=== PATIENT | male | born 1945 | race Caucasian/White ===

== ENCOUNTER 2017-02-28 14:56 | Emergency (ER) | payer MEDICARE, MEDICAID ==
[2017-02-28 15:49] LABS: URINE APPEARANCE CLEAR; URINE BILIRUBIN NEGATIVE (NEGATIVE); URINE BLOOD SMALL (NEGATIVE); URINE COLOR YELLOW; URINE GLUCOSE (UA) NEGATIVE (NEGATIVE); URINE KETONE 40 mg/dL (NEGATIVE); URINE LEUKOCYTE ESTERASE TRACE (NEGATIVE); URINE NITRITE POSITIVE (NEGATIVE); URINE PROTEIN NEGATIVE (NEGATIVE)
[2017-02-28] MEDS ORDERED: PROMETHAZINE HCL 25 MG TABLET PO ONE (15:50)
[2017-02-28 15:59] LABS: URINE RBC 21 - 35 (NONE SEEN)
[2017-02-28 16:00] LABS: URINE BACTERIA 2+
--- NOTE | 2017-02-28 16:10 | Emergency Department Record ---
History of Present Illness - General Chief complaint: Male Urogenital Problem Stated complaint: "I think I have a bladder infection" Time Seen by Provider: 02/28/17 15:39 Source: Patient Mode of Arrival: Ambulatory Limitations: No limitations - History of Present Illness Initial comments: pt thinks he has a uti. he feels the same way. he has self cathed for 5 yrs since a surgery. he periodically gets infections. he has had bouts of nausea and vomiting Onset/Timin -: Days(s) Other Reports: Nausea/vomiting, Other - Related Data Home Medications Medication Instructions Recorded Confirmed Last Taken Aspirin 81 mg PO QHS tab.chew 09/04/16 02/28/17 02/28/17 Metformin HCl [Metformin HCl ER] 1,000 mg PO DAILY tab 09/04/16 02/28/17 Prazosin HCl 1 mg PO BID cap 09/04/16 02/28/17 02/28/17 Sennosides [Senna] 2 tab PO DAILY tab 09/04/16 02/28/17 02/28/17 Simvastatin 10 mg PO QHS tab 09/04/16 02/28/17 02/28/17 Tramadol HCl 100 mg PO BID tab 09/04/16 02/28/17 02/28/17 Trazodone HCl 75 mg PO QHS tab 09/04/16 02/28/17 02/28/17 Previous Rx's Medication Instructions Recorded Sulfamethoxazole/Trimethoprim 1 each PO BID #14 tablet 02/28/17 [Bactrim Ds Tablet] Allergies Allergy/AdvReac Type Severity Reaction Status Date / Time No Known Allergies Allergy none Verified 02/28/17 15:20 Travel Screening - Travel/Exposure Within Last 30 Days Have you traveled within the last 30 days?: No - Travel/Exposure Within Last Year Have you traveled outside the [place] in the last year?: No - Additonal Travel Details Have you been exposed to anyone with a communicable illness?: No - Travel Symptoms Symptom Screening: None Review of Systems Reviewed: No additional complaints except as noted below Constitutional: Reports: As per HPI. Denies: Chills, Fever, Malaise, Night sweats, Weakness, Weight change Eyes: Reports: As per HPI. Denies: Eye discharge, Eye pain, Photophobia, Vision change ENT: Reports: As per HPI. Denies: Congestion, Dental pain, Ear pain, Epistaxis , Hearing loss, Throat pain Respiratory: Reports: As per HPI. Denies: Cough, Dyspnea, Hemoptysis, Stridor, Wheezes Cardiovascular: Reports: As per HPI. Denies: Arrhythmia, Chest pain, Dyspnea on exertion, Edema, Murmurs, Orthopnea, Palpitations, Paroxysmal nocturnal dyspnea, Rheumatic Fever, Syncope Endocrine: Reports: As per HPI. Denies: Fatigue, Heat or cold intolerance, Polydipsia, Polyuria Gastrointestinal: Reports: As per HPI. Denies: Abdominal pain, Constipation, Diarrhea, Hematemesis, Hematochezia, Melena, Nausea, Vomiting Genitourinary: Reports: As per HPI. Denies: Dysuria, Frequency, Hematuria, Incontinence, Retention, Testicular pain, Testicular mass, Urgency Musculoskeletal: Reports: As per HPI. Denies: Arthralgia, Back pain, Gout, Joint swelling, Myalgia, Neck pain Skin: Reports: As per HPI. Denies: Bruising, Change in color, Change in hair/ nails, Lesions, Pruritus, Rash Neurological: Reports: As per HPI. Denies: Abnormal gait, Confusion, Headache, Numbness, Paresthesias, Seizure, Tingling, Tremors, Vertigo, Weakness Psychiatric: Reports: As per HPI. Denies: Anxiety, Auditory hallucinations, Depression, Homicidal thoughts, Suicidal thoughts, Visual hallucinations Hematological/Lymphatic: Reports: As per HPI. Denies: Anemia, Blood Clots, Easy bleeding, Easy bruising, Swollen glands Past Medical History - SOCIAL HISTORY Smoking Status: Never smoker Alcohol Use: None Drug Use Detail:: Methamphetamine - RESPIRATORY Hx Respiratory Disorders: No - CARDIOVASCULAR Hx Cardio Disorders: Yes Comment:: "trouble with heart" in the past - NEURO Hx Neuro Disorders: Yes Hx Dizziness: Yes - GI Hx GI Disorders: No - Hx Genitourinary Disorders: Yes Hx Bladder Problem: Yes Comment:: Pt self catheterizes for each void - ENDOCRINE Hx Endocrine Disorders: Yes Hx Diabetes: Yes Hx Thyroid Disease: No - MUSCULOSKELETAL Hx Musculoskeletal Disorders: No - PSYCH Hx Psych Problems: Yes Comment:: Pt states drug abuse began in [place] 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 negative: External canal tenderness Nasal Exam: Normal inspection. negative: Discharge, Sinus tenderness Mouth exam: Normal external inspection, Tongue normal Teeth exam: Normal inspection. negative: Dental caries Throat exam: Normal inspection. negative: Tonsillar erythema, Tonsillar exudate - Neck Neck exam: Normal inspection, Full ROM. negative: Tenderness - Respiratory Respiratory exam: Normal lung sounds bilaterally. negative: Respiratory distress - Cardiovascular Cardiovascular Exam: Regular rate, Normal rhythm, Normal heart sounds - GI/Abdominal GI/Abdominal exam: Soft, Normal bowel sounds. negative: Tenderness - Rectal Rectal exam: Deferred - exam: Deferred - Extremities Extremities exam: Normal inspection, Full ROM, Normal capillary refill. negative: Tenderness - Back Back exam: Reports: Normal inspection, Full ROM. Denies: Muscle spasm, Rash noted, Tenderness - Neurological Neurological exam: Alert, CN II-XII intact, Normal gait, Oriented X3 - Psychiatric Psychiatric exam: Normal affect, Normal mood - Skin Skin exam: Dry, Intact, Normal color, Warm Course Vital Signs 02/28/17 02/28/17 15:07 15:22 Temperature 97.5 F L 97.5 F L Pulse Rate [ 76 Pulse Ox Probe] Respiratory 14 14 Rate Blood Pressure 109/64 [Left Arm] Pulse Ox 98 98 Medical Decision Making - Lab Data Lab Results 02/28/17 Range/Units 15:23 Urine Color Yellow Urine Appearance Clear Urine pH 6.5 (5.0-8.0) Ur Specific [place] 1.020 (1.002-1.030) Urine Protein Negative (NEGATIVE) Urine Glucose (UA) Negative (NEGATIVE) Urine Ketones 40 mg/dl H (NEGATIVE) Urine Blood Small H (NEGATIVE) Urine Nitrite Positive H (NEGATIVE) Urine Bilirubin Negative (NEGATIVE) Urine Urobilinogen 1.0 (0.20 - 1.00) E.U./dL Ur Leukocyte Esterase Trace H (NEGATIVE) Urine RBC 21 - 35 (NONE SEEN) Urine WBC 6 - 10 (0-2/hpf) Ur Epithelial Cells 3 - 6 (FEW) Urine Bacteria 2+ Disposition Disposition: Discharge Clinical Impression: UTI (urinary tract infection) Qualifiers: Urinary tract infection type: acute cystitis Hematuria presence: without hematuria Qualified Code(s): N30.00 - Acute cystitis without hematuria Disposition: Home, Self-Care Condition: (1) Good Instructions: Urinary Tract Infection in Men (ED) Additional Instructions: follow up with family doctor. return sooner if worse. Prescriptions: Sulfamethoxazole/Trimethoprim [Bactrim Ds Tablet] 1 each PO BID #14 tablet Forms: Patient Portal Access
== END 2017-02-28 16:30 | disposition home or self-care (01) ==
LOC: ER 14:56
DX: N30.00 Acute cystitis without hematuria (principal); R11.2 Nausea with vomiting, unspecified
CPT/HCPCS: 81001; 99283; Q0170

== ENCOUNTER 2018-11-01 11:26 | Observation (INO) | payer MEDICARE ==
[2018-11-01] MEDS ORDERED: 0.9 % SODIUM CHLORIDE 1,000 ML BAG IV ONE ×2 (11:47→13:18)
[2018-11-01 11:53] LABS: BASO % 0.4 % (0-6); EOS % 2.2 % (0-6); HEMATOCRIT 47.6 % (42.0-52.0); HEMOGLOBIN 16.4 gm/dl (14.0-18.0); LYMPH % 47.5 % (16-45); MEAN CELL VOLUME 82.2 fl (81-97); MEAN CORPUSCULAR HEMOGLOBIN 28.3 pg (27-33); MEAN CORPUSCULAR HGB CONC 34.5 g/dl (32-36); MEAN PLATELET VOLUME 11.4 fl (7.4-10.4); MONO % 14.9 % (0-9); PLATELET COUNT 172 K/uL (130-400); RED BLOOD COUNT 5.79 M/uL (4.40-5.70); RED CELL DISTRIBUTION WIDTH 15.2 % (11.5-14.5); WHITE BLOOD COUNT W/O DIFF 5.5 K/uL (4.2-12.2)
[2018-11-01 11:58] LABS: BLOOD UREA NITROGEN 24 mg/dL (8-23); CREATININE 1.1 mg/dL (0.7-1.2); EST GLOMERULAR FILTRATION RATE > 60 mL/min
[2018-11-01 11:59] LABS: TOTAL PROTEIN 7.5 g/dL (6.6-8.7)
[2018-11-01 12:01] LABS: GLUCOSE,RANDOM 174 mg/dL (74-109)
[2018-11-01 12:03] LABS: ALT/SGPT 20 U/L (<41)
[2018-11-01 12:04] LABS: ALKALINE PHOSPHATASE 106 U/L (40-129); AST/SGOT 19 U/L (10.0-50.0); BILIRUBIN,DIRECT < 0.2 mg/dL (0-0.3)
[2018-11-01 13:15] LABS: URINE APPEARANCE SL CLOUDY; URINE BILIRUBIN NEGATIVE (NEGATIVE); URINE BLOOD TRACE-I (NEGATIVE); URINE COLOR YELLOW; URINE GLUCOSE (UA) NEGATIVE (NEGATIVE); URINE KETONE NEGATIVE (NEGATIVE); URINE LEUKOCYTE ESTERASE SMALL (NEGATIVE); URINE NITRITE NEGATIVE (NEGATIVE); URINE PROTEIN NEGATIVE (NEGATIVE); URINE UROBILINOGEN 0.2 E.U./dL (0.20 - 1.00)
[2018-11-01 13:23] LABS: AMPHETAMINE SCREEN URINE NOT DETECTED; BARBITURATE SCREEN URINE NOT DETECTED; BENZODIAZEPINE SCREEN URINE NOT DETECTED; COCAINE SCREEN URINE NOT DETECTED; METHADONE SCREEN URINE NOT DETECTED; METHAMPHETAMINE SCREEN NOT DETECTED; OPIATE SCREEN URINE NOT DETECTED; OXYCODONE SCREEN URINE NOT DETECTED; PHENCYCLIDINE SCREEN URINE NOT DETECTED; PROPOXYPHENE SCREEN URINE NOT DETECTED; THC SCREEN URINE NOT DETECTED; TRICYCLIC ANTIDEPRESSANT SCRN DETECTED; URINE BACTERIA 4+; URINE EPITHELIAL CELLS NONE SEEN (FEW)
--- NOTE | 2018-11-01 15:08 | CT SCAN REPORT ---
DATE: 11/01/2018. EXAM: CT OF THE BRAIN WITHOUT CONTRAST. HISTORY: SYNCOPE. TECHNIQUE: Sequential axial images were obtained from the foramen magnum to the vertex without contrast administration. FINDINGS: The brain volume is normal. No large territorial infarct, hemorrhage , mass effect, or midline shift. No extra-axial fluid collection. The orbits, paranasal sinuses, and mastoid air cells are normal. IMPRESSION: NO ACUTE INTRACRANIAL ABNORMALITIES ARE APPRECIATED. JOB NUMBER: [id number] MTDD
--- NOTE | 2018-11-01 18:28 | Emergency Department Record ---
History of Present Illness - General Chief Complaint: Syncope Stated Complaint: SYNCOPE Time Seen by Provider: 11/01/18 11:33 Source: Patient, Family Mode of Arrival: Wheelchair Limitations: No limitations - History of Present Illness Initial Comments: pt stated that he almost passed out and slipped to the floor. he said he was lightheaded and dizzy and the room was spinning. Onset/Timin -: Minutes(s) Prodromal Symptoms: Lightheaded Current Symptoms: Lightheaded Context: During exertion Treatments Prior to Arrival: None - [place] Coma Scale Eye Response: (4) Open spontaneously Motor Response: (6) Obeys commands Verbal Response: (5) Oriented [place] Total: 15 - Related Data Home Medications Medication Instructions Recorded Confirmed Last Taken Diltiazem HCl [Diltiazem 12Hr ER] 360 mg PO DAILY 11/01/18 11/01/18 Unknown Gabapentin [Neurontin] 300 mg PO TID 11/01/18 11/01/18 Unknown Rivaroxaban [Xarelto] 20 mg PO DAILY 11/01/18 11/01/18 Unknown Allergies Allergy/AdvReac Type Severity Reaction Status Date / Time No Known Allergies Allergy none Unverified 10/19/18 11:14 Travel Screening - Travel/Exposure Within Last 30 Days Have you traveled within the last 30 days?: No Review of Systems Reviewed: No additional complaints except as noted below Constitutional: Reports: As per HPI. Denies: Chills, Fever, Malaise, Night sweats, Weakness, Weight change Eyes: Reports: As per HPI. Denies: Eye discharge, Eye pain, Photophobia, Vision change ENT: Reports: As per HPI. Denies: Congestion, Dental pain, Ear pain, Epistaxis , Hearing loss, Throat pain Respiratory: Reports: As per HPI. Denies: Cough, Dyspnea, Hemoptysis, Stridor, Wheezes Cardiovascular: Reports: As per HPI. Denies: Arrhythmia, Chest pain, Dyspnea on exertion, Edema, Murmurs, Orthopnea, Palpitations, Paroxysmal nocturnal dyspnea, Rheumatic Fever, Syncope Endocrine: Reports: As per HPI. Denies: Fatigue, Heat or cold intolerance, Polydipsia, Polyuria Gastrointestinal: Reports: As per HPI. Denies: Abdominal pain, Constipation, Diarrhea, Hematemesis, Hematochezia, Melena, Nausea, Vomiting Genitourinary: Reports: As per HPI. Denies: Dysuria, Frequency, Hematuria, Incontinence, Retention, Testicular pain, Testicular mass, Urgency Musculoskeletal: Reports: As per HPI. Denies: Arthralgia, Back pain, Gout, Joint swelling, Myalgia, Neck pain Skin: Reports: As per HPI. Denies: Bruising, Change in color, Change in hair/ nails, Lesions, Pruritus, Rash Neurological: Reports: As per HPI. Denies: Abnormal gait, Confusion, Headache, Numbness, Paresthesias, Seizure, Tingling, Tremors, Vertigo, Weakness Psychiatric: Reports: As per HPI. Denies: Anxiety, Auditory hallucinations, Depression, Homicidal thoughts, Suicidal thoughts, Visual hallucinations Hematological/Lymphatic: Reports: As per HPI. Denies: Anemia, Blood Clots, Easy bleeding, Easy bruising, Swollen glands Past Medical History - SOCIAL HISTORY Smoking Status: Never smoker - RESPIRATORY Hx Respiratory Disorders: No - CARDIOVASCULAR Hx Cardio Disorders: Yes Comment:: "trouble with heart" in the past - NEURO Hx Neuro Disorders: Yes Hx Dizziness: Yes - GI Hx GI Disorders: No - Hx Genitourinary Disorders: Yes Hx Bladder Problem: Yes Comment:: Pt self catheterizes for each void - ENDOCRINE Hx Endocrine Disorders: Yes Hx Diabetes: Yes Hx Thyroid Disease: No - MUSCULOSKELETAL Hx Musculoskeletal Disorders: No - PSYCH Hx Psych Problems: Yes Comment:: Pt states drug abuse began in [place] 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 negative: External canal tenderness Nasal Exam: Normal inspection. negative: Discharge, Sinus tenderness Mouth exam: Normal external inspection, Tongue normal Teeth exam: Normal inspection. negative: Dental caries Throat exam: Normal inspection. negative: Tonsillar erythema, Tonsillar exudate - Neck Neck exam: Normal inspection, Full ROM. negative: Tenderness - Respiratory Respiratory exam: Normal lung sounds bilaterally. negative: Respiratory distress - Cardiovascular Cardiovascular Exam: Regular rate, Normal rhythm, Normal heart sounds - GI/Abdominal GI/Abdominal exam: Soft, Normal bowel sounds. negative: Tenderness - Rectal Rectal exam: Deferred - exam: Deferred - Extremities Extremities exam: Normal inspection, Full ROM, Normal capillary refill. negative: Tenderness - Back Back exam: Reports: Normal inspection, Full ROM. Denies: Muscle spasm, Rash noted, Tenderness - Neurological Neurological exam: Alert, CN II-XII intact, Normal gait, Oriented X3 - Psychiatric Psychiatric exam: Normal affect, Normal mood - Skin Skin exam: Dry, Intact, Normal color, Warm Course Vital Signs 11/01/18 11:29 Pulse Rate 61 Respiratory 18 Rate Blood Pressure 130/108 - Reevaluation(s) Reevaluation #1: 11/01/18 18:30 pt felt better after 1500cc of fluid. he was initially orthostatic. he eventually told me he accidentally took an extra cardizem Medical Decision Making - Lab Data Result diagrams: 11/01/18 11:40 11/01/18 11:40 Lab Results 11/01/18 11/01/18 11/01/18 Range/Units 11:40 11:40 11:40 WBC 5.5 (4.2-12.2) K/uL RBC 5.79 H (4.40-5.70) M/uL Hgb 16.4 (14.0-18.0) gm/dl Hct 47.6 (42.0-52.0) % MCV 82.2 (81-97) fl MCH 28.3 (27-33) pg MCHC 34.5 (32-36) g/dl RDW 15.2 H (11.5-14.5) % Plt Count 172 (130-400) K/uL MPV 11.4 H (7.4-10.4) fl Gran % 35.0 L (47-80) % Lymphocytes % 47.5 H (16-45) % Monocytes % 14.9 H (0-9) % Eosinophils % 2.2 (0-6) % Basophils % 0.4 (0-6) % D-Dimer 0.36 (0-0.59) mg/L FEU Sodium 136 (136-145) mmol/L Potassium 3.9 (3.4-4.5) mmol/L Chloride 98 (98-107) mmol/L Carbon Dioxide 22.0 (22-29) mmol/L Anion Gap 16.0 (7-16) BUN 24 H (8-23) mg/dL Creatinine 1.1 (0.7-1.2) mg/dL Estimated GFR > 60 mL/min Random Glucose 174 H (74-109) mg/dL Calcium 8.9 (8.8-10.2) mg/dL Total Bilirubin 0.90 (0.2-1.0) mg/dL Direct Bilirubin < 0.2 (0-0.3) mg/dL AST 19 (10.0-50.0) U/L ALT 20 (<41) U/L Alkaline Phosphatase 106 (40-129) U/L CK-MB (CK-2) 3.0 (<6.73) ng/mL Troponin T (0-0.010) ng/mL NT-Pro-B Natriuret Pep (<125) pg/mL Total Protein 7.5 (6.6-8.7) g/dL Albumin 4.0 (4.0-5.0) g/dL Urine Color Urine Appearance Urine pH (5.0-8.0) Ur Specific [place] (1.002-1.030) Urine Protein (NEGATIVE) Urine Glucose (UA) (NEGATIVE) Urine Ketones (NEGATIVE) Urine Blood (NEGATIVE) Urine Nitrite (NEGATIVE) Urine Bilirubin (NEGATIVE) Urine Urobilinogen (0.20 - 1.00) E.U./dL Ur Leukocyte Esterase (NEGATIVE) Urine RBC (NONE SEEN) Urine WBC (0-2/hpf) Ur Epithelial Cells (FEW) Urine Bacteria Urine Opiates Screen Ur Oxycodone Screen Urine Methadone Screen Ur Propoxyphene Screen Ur Barbituates Screen Ur Tricyclics Screen Ur Phencyclidine Scrn Ur Amphetamine Screen U Methamphetamines Scrn U Benzodiazepines Scrn Urine Cocaine Screen Urine Cannabis Screen 11/01/18 11/01/18 11/01/18 Range/Units 11:40 13:10 13:10 WBC (4.2-12.2) K/uL RBC (4.40-5.70) M/uL Hgb (14.0-18.0) gm/dl Hct (42.0-52.0) % MCV (81-97) fl MCH (27-33) pg MCHC (32-36) g/dl RDW (11.5-14.5) % Plt Count (130-400) K/uL MPV (7.4-10.4) fl Gran % (47-80) % Lymphocytes % (16-45) % Monocytes % (0-9) % Eosinophils % (0-6) % Basophils % (0-6) % D-Dimer (0-0.59) mg/L FEU Sodium (136-145) mmol/L Potassium (3.4-4.5) mmol/L Chloride (98-107) mmol/L Carbon Dioxide (22-29) mmol/L Anion Gap (7-16) BUN (8-23) mg/dL Creatinine (0.7-1.2) mg/dL Estimated GFR mL/min Random Glucose (74-109) mg/dL Calcium (8.8-10.2) mg/dL Total Bilirubin (0.2-1.0) mg/dL Direct Bilirubin (0-0.3) mg/dL AST (10.0-50.0) U/L ALT (<41) U/L Alkaline Phosphatase (40-129) U/L CK-MB (CK-2) (<6.73) ng/mL Troponin T < 0.010 (0-0.010) ng/mL NT-Pro-B Natriuret Pep 167.40 H (<125) pg/mL Total Protein (6.6-8.7) g/dL Albumin (4.0-5.0) g/dL Urine Color Yellow Urine Appearance Sl cloudy Urine pH 6.0 (5.0-8.0) Ur Specific [place] 1.025 (1.002-1.030) Urine Protein Negative (NEGATIVE) Urine Glucose (UA) Negative (NEGATIVE) Urine Ketones Negative (NEGATIVE) Urine Blood Trace-i (NEGATIVE) Urine Nitrite Negative (NEGATIVE) Urine Bilirubin Negative (NEGATIVE) Urine Urobilinogen 0.2 (0.20 - 1.00) E.U./dL Ur Leukocyte Esterase Small H (NEGATIVE) Urine RBC 3 - 6 (NONE SEEN) Urine WBC 10 - 15 (0-2/hpf) Ur Epithelial Cells None seen (FEW) Urine Bacteria 4+ Urine Opiates Screen Not detected Ur Oxycodone Screen Not detected Urine Methadone Screen Not detected Ur Propoxyphene Screen Not detected Ur Barbituates Screen Not detected Ur Tricyclics Screen Detected Ur Phencyclidine Scrn Not detected Ur Amphetamine Screen Not detected U Methamphetamines Scrn Not detected U Benzodiazepines Scrn Not detected Urine Cocaine Screen Not detected Urine Cannabis Screen Not detected Disposition Disposition: Admit Clinical Impression: Syncope Qualifiers: Syncope type: unspecified Qualified Code(s): R55 - Syncope and collapse Disposition: Still a Patient at [facility] Decision to Admit: Admit from ER Decision to Admit Date: 11/01/18 Decision to Admit Time: 18:37 Quality - Quality Measures Quality Measures: N/A - Blood Pressure Screening Does Patient Have Any of the Following: Active Dx of HTN Blood Pressure Classification: Hypertensive Reading Systolic Measurement: 130 Diastolic Measurement: 108 Screening for High Blood Pressure: Patient Exclusion, Hx of HTN [[id number]]
[2018-11-01] MEDS ORDERED: ACETAMINOPHEN 500 MG TABLET PO PRN (19:14)
[2018-11-01] MEDS: 0.9 % SODIUM CHLORIDE 1000ML 1,000 ML IV PRN (19:42)
[2018-11-01] MEDS: TRAMADOL HCL 50 MG TABLET PO SCH (21:35)
[2018-11-01] MEDS: GABAPENTIN 300 MG CAPSULE PO SCH (21:36)
[2018-11-01] MEDS: CIPROFLOXACIN HCL 500 MG TABLET PO SCH (21:38)
[2018-11-01] MEDS ORDERED: SIMVASTATIN 10MG TABLET PO SCH (22:00)
[2018-11-01] MEDS ORDERED: Non-Formulary MISC (Prazosin Hcl [Prazosin Hcl] 1 MG) PO SCH (22:00)
[2018-11-01] MEDS ORDERED: ASPIRIN 81 MG CHEWABLE TABLET PO SCH (22:00)
[2018-11-02] MEDS: 0.9 % SODIUM CHLORIDE 1000ML 1,000 ML IV PRN (05:14)
[2018-11-02] MEDS ORDERED: METFORMIN ER HCL 500 MG TAB.ER.24H PO SCH (10:00)
[2018-11-02] MEDS ORDERED: RIVAROXABAN 20 MG TABLET PO SCH (10:00)
[2018-11-02] MEDS: TRAMADOL HCL 50 MG TABLET PO SCH (10:19)
[2018-11-02] MEDS: GABAPENTIN 300 MG CAPSULE PO SCH (10:21)
[2018-11-02] MEDS: CIPROFLOXACIN HCL 500 MG TABLET PO SCH (10:21)
--- NOTE | 2018-11-02 12:14 | History & Physical ---
History of Present Illness - Date of Service Date of Service for History & Physical: 11/02/18 - History of Present Illness Admitting Diagnosis: syncope, orthostatic hypotension, od of cardizem History of Present Illness: 73 year old male patient presents to the ED for evaluation of dizziness. Patient states he climbed a flight of stairs and when he got to the top had severe dizziness. States he felt light-headed and dizzy with the room spinning. Patient states he grabbed a chair and lowered himself to the ground. Patient is not sure whether he lost consciousness completely. Patient states his Cardizem dose was recently increased to 360mg. Patient states he accidentally took 2 tabs yesterday morning. Medical history includes a-fib on Xarelto, and chronic straight cath. PCP: [facility] Course: VS: HR 61, RR 18, BP 130/108. Patient was positive for orthostatics, improved after 1500mL Normal Saline CBC, CMP, Trop, BNP, D-dimer WNL UA: small leukocytes, 10-15 WBC, 4+ bacteria 11/02/18: Patient A&O x 3, resting comfortably in bed at this time. Patient is a poor historian. States he lives with his brother and is responsible for administering his own medications. Patient denies any abdominal pain, fever, or urinary symptoms. Patient denies any dizziness, near syncope, or light- headedness today. Denies any nausea, vomiting, or diarrhea. VS have remained WNL. Travel Screening - Travel/Exposure Within Last 30 Days Have you traveled within the last 30 days?: No - Travel/Exposure Within Last Year Have you traveled outside the [place] in the last year?: No - Additonal Travel Details Have you been exposed to anyone with a communicable illness?: No - Travel Symptoms Symptom Screening: None Review of Systems Reviewed: No additional complaints except as noted below Constitutional: Reports: As per HPI. Denies: Chills, Fever, Malaise, Night sweats, Weakness, Weight change Eyes: Reports: As per HPI. Denies: Eye discharge, Eye pain, Photophobia, Vision change ENT: Reports: As per HPI. Denies: Congestion, Dental pain, Ear pain, Epistaxis , Hearing loss, Throat pain Respiratory: Reports: As per HPI. Denies: Cough, Dyspnea, Hemoptysis, Stridor, Wheezes Cardiovascular: Reports: As per HPI. Denies: Arrhythmia, Chest pain, Dyspnea on exertion, Edema, Murmurs, Orthopnea, Palpitations, Paroxysmal nocturnal dyspnea, Rheumatic Fever, Syncope Endocrine: Reports: As per HPI. Denies: Fatigue, Heat or cold intolerance, Polydipsia, Polyuria Gastrointestinal: Reports: As per HPI. Denies: Abdominal pain, Constipation, Diarrhea, Hematemesis, Hematochezia, Melena, Nausea, Vomiting Genitourinary: Reports: As per HPI. Denies: Dysuria, Frequency, Hematuria, Incontinence, Retention, Testicular pain, Testicular mass, Urgency Musculoskeletal: Reports: As per HPI. Denies: Arthralgia, Back pain, Gout, Joint swelling, Myalgia, Neck pain Skin: Reports: As per HPI. Denies: Bruising, Change in color, Change in hair/ nails, Lesions, Pruritus, Rash Neurological: Reports: As per HPI, Other (dizziness). Denies: Abnormal gait, Confusion, Headache, Numbness, Paresthesias, Seizure, Tingling, Tremors, Vertigo , Weakness Psychiatric: Reports: As per HPI. Denies: Anxiety, Auditory hallucinations, Depression, Homicidal thoughts, Suicidal thoughts, Visual hallucinations Hematological/Lymphatic: Reports: As per HPI. Denies: Anemia, Blood Clots, Easy bleeding, Easy bruising, Swollen glands Past Medical History - SOCIAL HISTORY Smoking Status: Never smoker Alcohol Use: None Drug Use: None - RESPIRATORY Hx Respiratory Disorders: No - CARDIOVASCULAR Hx Cardio Disorders: Yes Comment:: "trouble with heart" in the past - NEURO Hx Neuro Disorders: Yes Hx Dizziness: Yes - GI Hx GI Disorders: No - Hx Genitourinary Disorders: Yes Hx Bladder Problem: Yes Comment:: Pt self catheterizes for each void - ENDOCRINE Hx Endocrine Disorders: Yes Hx Diabetes: Yes Hx Thyroid Disease: No - MUSCULOSKELETAL Hx Musculoskeletal Disorders: No - PSYCH Hx Psych Problems: Yes Comment:: Pt states drug abuse began in [place] when he was serving - HEMATOLOGY/ONCOLOGY Hx Hematology/Oncology Disorders: No Family Medical History Any Significant Family History?: No H&P Meds/Allergies - Allergies Allergies: Allergies Allergy/AdvReac Type Severity Reaction Status Date / Time No Known Allergies Allergy none Unverified 10/19/18 11:14 - Home Medications Home Medications Medication Instructions Recorded Confirmed Last Taken Diltiazem HCl [Diltiazem 12Hr ER] 360 mg PO DAILY 11/01/18 11/01/18 Unknown Gabapentin [Neurontin] 300 mg PO TID 11/01/18 11/01/18 Unknown Rivaroxaban [Xarelto] 20 mg PO DAILY 11/01/18 11/01/18 Unknown Previous Rx's Medication Instructions Recorded Ciprofloxacin HCl [Cipro] 500 mg PO Q12HR #10 tablet 11/02/18 - Active Medications Active Medications: Current Medications Acetaminophen (Tylenol 500mg Tab) 1,000 mg PO Q6H PRN PRN Reason: PAIN - MILD(1-4)/FEVER Aspirin (Aspirin Chewable) 81 mg PO QHS [facility] Last Admin: 11/01/18 21:36 Dose: 81 mg Ciprofloxacin (Cipro) 500 mg PO Q12HR [facility] Last Admin: 11/02/18 10:21 Dose: 500 mg Gabapentin (Neurontin) 300 mg PO TID [facility] Last Admin: 11/02/18 10:21 Dose: 300 mg Sodium Chloride () 1,000 mls @ 100 mls/hr IV .Q10H PRN PRN Reason: LARGE VOLUME IV Last Admin: 11/02/18 05:14 Dose: 100 mls/hr Metformin HCl (Glucophage Xr) 1,000 mg PO DAILY [facility] Last Admin: 11/02/18 10:19 Dose: 1,000 mg Non-Formulary Medication (Prazosin Hcl [Prazosin Hcl]) 1 mg PO BID [facility] Rivaroxaban (Xarelto) 20 mg PO DAILY [facility] Last Admin: 11/02/18 10:21 Dose: 20 mg Simvastatin (Zocor) 10 mg PO QHS [facility] Last Admin: 11/01/18 21:38 Dose: 10 mg Tramadol HCl (Ultram) 100 mg PO BID [facility] Last Admin: 11/02/18 10:19 Dose: 100 mg Physical Exam - Vital Signs Vital Signs: Vital Signs - Last 24 Hrs Temp Pulse Pulse Resp BP BP Pulse Ox 11/02/18 10:00 97.3 F L 80 18 134/86 96 11/02/18 08:51 72 20 11/02/18 06:00 97.5 F L 72 16 130/81 93 L 11/01/18 22:00 98.0 F 76 18 120/71 94 L 11/01/18 21:00 70 16 11/01/18 19:53 70 16 11/01/18 19:16 70 16 100/63 94 L 11/01/18 19:00 97.9 F 67 18 142/84 98 - General General Appearance: Alert, Oriented x3, Cooperative, No acute distress Limitations: No limitations - Head Head exam: Normal inspection - Eye Eye exam: Normal appearance, PERRL, EOMI Pupils: Normal accommodation - ENT ENT exam: Normal exam, Mucous membranes moist, Normal external ear exam, Normal orophraynx Ear exam: Normal external inspection. negative: External canal tenderness Nasal Exam: Normal inspection. negative: Discharge, Sinus tenderness Mouth exam: Normal external inspection, Tongue normal Teeth exam: negative: Dental caries Throat exam: negative: Tonsillar erythema, Tonsillar exudate - Neck Neck exam: Normal inspection, Full ROM. negative: Tenderness - Respiratory Respiratory exam: Normal lung sounds bilaterally. negative: Respiratory distress - Cardiovascular Cardiovascular Exam: Regular rate, Normal rhythm, Normal heart sounds Peripheral Pulses: 2+: Radial (R), Radial (L), Dorsalis Pedis (R), Dorsalis Pedis (L) - GI/Abdominal GI/Abdominal exam: Soft, Normal bowel sounds. negative: Tenderness - Rectal Rectal exam: Deferred - exam: Deferred - Extremities Extremities exam: Normal inspection, Full ROM, Normal capillary refill. negative: Tenderness - Back Back exam: Reports: Normal inspection, Full ROM. Denies: Muscle spasm, Rash noted, Tenderness - Neurological Neurological exam: Alert, Normal gait, Oriented X3 - Psychiatric Psychiatric exam: Normal affect, Normal mood - Skin Skin exam: Dry, Intact, Normal color, Warm Type of lesion: Rash (erythematous papules noted on left lower arm, recently diagnosed with shingles) Results - Labs Result Diagrams: 11/01/18 11:40 11/01/18 11:40 Labs Last 24 Hours: Laboratory Results - last 24 hr 11/01/18 11/01/18 11/01/18 11:40 11:40 11:40 D-Dimer 0.36 Sodium 136 Potassium 3.9 Chloride 98 Carbon Dioxide 22.0 Anion Gap 16.0 BUN 24 H Creatinine 1.1 Estimated GFR > 60 Random Glucose 174 H Calcium 8.9 Total Bilirubin 0.90 Direct Bilirubin < 0.2 AST 19 ALT 20 Alkaline Phosphatase 106 CK-MB (CK-2) 3.0 Troponin T < 0.010 NT-Pro-B Natriuret Pep 167.40 H Total Protein 7.5 Albumin 4.0 Urine Color Urine Appearance Urine pH Ur Specific [place] Urine Protein Urine Glucose (UA) Urine Ketones Urine Blood Urine Nitrite Urine Bilirubin Urine Urobilinogen Ur Leukocyte Esterase Urine RBC Urine WBC Ur Epithelial Cells Urine Bacteria Urine Opiates Screen Ur Oxycodone Screen Urine Methadone Screen Ur Propoxyphene Screen Ur Barbituates Screen Ur Tricyclics Screen Ur Phencyclidine Scrn Ur Amphetamine Screen U Methamphetamines Scrn U Benzodiazepines Scrn Urine Cocaine Screen Urine Cannabis Screen 11/01/18 11/01/18 13:10 13:10 D-Dimer Sodium Potassium Chloride Carbon Dioxide Anion Gap BUN Creatinine Estimated GFR Random Glucose Calcium Total Bilirubin Direct Bilirubin AST ALT Alkaline Phosphatase CK-MB (CK-2) Troponin T NT-Pro-B Natriuret Pep Total Protein Albumin Urine Color Yellow Urine Appearance Sl cloudy Urine pH 6.0 Ur Specific [place] 1.025 Urine Protein Negative Urine Glucose (UA) Negative Urine Ketones Negative Urine Blood Trace-i Urine Nitrite Negative Urine Bilirubin Negative Urine Urobilinogen 0.2 Ur Leukocyte Esterase Small H Urine RBC 3 - 6 Urine WBC 10 - 15 Ur Epithelial Cells None seen Urine Bacteria 4+ Urine Opiates Screen Not detected Ur Oxycodone Screen Not detected Urine Methadone Screen Not detected Ur Propoxyphene Screen Not detected Ur Barbituates Screen Not detected Ur Tricyclics Screen Detected Ur Phencyclidine Scrn Not detected Ur Amphetamine Screen Not detected U Methamphetamines Scrn Not detected U Benzodiazepines Scrn Not detected Urine Cocaine Screen Not detected Urine Cannabis Screen Not detected VTE H&P Assessment - Risk for VTE Risk for VTE: No Risk Level: Low Risk Assessment Date: 11/02/18 Risk Assessment Time: 12:16 VTE Orders Placed or Will Be Placed: No VTE Reason for No Prophylaxis: Not Indicated (on Eliquis treatment) Plan - Detailed Diagnosis and Plan (1) Syncope Status: Acute Qualifiers: Syncope type: unspecified Qualified Code(s): R55 - Syncope and collapse Base Code: R55 - SYNCOPE AND COLLAPSE Comment: 11/02/18: orthostatic hypotension vs cardizem overdose -positive orthostatics in ED, improved with 1500mL NS -Head CT unremarkable -EKG unremarkable, Troponin negative x 2, d-dimer negative. No CP, SOB. -VS q8h -Urine drug neg -No further symptoms of dizziness/near syncope since [facility] (2) UTI (urinary tract infection) Status: Acute Qualifiers: Urinary tract infection type: acute cystitis Hematuria presence: without hematuria Qualified Code(s): N30.00 - Acute cystitis without hematuria Base Code: N39.0 - URINARY TRACT INFECTION, SITE NOT SPECIFIED Comment: 11/02/18 : UA indicates small leuks, 10-15 WBC, 4+ bacteria -Cipro 500mg BID x 5 days -Afebrile -WBC WNL -Encourage PO fluid intake (3) DVT prophylaxis Status: Acute Base Code: [id number] - Comment: 11/02/18: not indicated at this time due to chronic xarelto use (4) DNR (do not resuscitate) Status: Acute Base Code: Z66 - DO NOT RESUSCITATE Comment: 11/02/18: patiet remained DNR
--- NOTE | 2018-11-02 12:29 | Discharge Summary ---
Providers Discharge Summary Date: 11/02/18 Date of admission: 11/01/18 19:13 Expected Date of Discharge: 11/02/18 Attending physician: GONZÁLEZ KINNEY Primary care physician: LUIS Physical Exam - Vital Signs Vital Signs: Vital Signs - Last 24 Hrs Temp Pulse Pulse Resp BP BP Pulse Ox 11/02/18 10:00 97.3 F L 80 18 134/86 96 11/02/18 08:51 72 20 11/02/18 06:00 97.5 F L 72 16 130/81 93 L 11/01/18 22:00 98.0 F 76 18 120/71 94 L 11/01/18 21:00 70 16 11/01/18 19:53 70 16 11/01/18 19:16 70 16 100/63 94 L 11/01/18 19:00 97.9 F 67 18 142/84 98 - General General Appearance: Alert, Oriented x3, Cooperative, No acute distress Limitations: No limitations - Head Head exam: Normal inspection - Eye Eye exam: Normal appearance, PERRL, EOMI Pupils: Normal accommodation - ENT ENT exam: Normal exam, Mucous membranes moist, Normal external ear exam, Normal orophraynx Ear exam: Normal external inspection. negative: External canal tenderness Nasal Exam: Normal inspection. negative: Discharge, Sinus tenderness Mouth exam: Normal external inspection, Tongue normal Teeth exam: negative: Dental caries Throat exam: negative: Tonsillar erythema, Tonsillar exudate - Neck Neck exam: Normal inspection, Full ROM. negative: Tenderness - Respiratory Respiratory exam: Normal lung sounds bilaterally. negative: Respiratory distress - Cardiovascular Cardiovascular Exam: Regular rate, Normal rhythm, Normal heart sounds Peripheral Pulses: 2+: Radial (R), Radial (L), Dorsalis Pedis (R), Dorsalis Pedis (L) - GI/Abdominal GI/Abdominal exam: Soft, Normal bowel sounds. negative: Tenderness - Rectal Rectal exam: Deferred - exam: Deferred - Extremities Extremities exam: Normal inspection, Full ROM, Normal capillary refill. negative: Tenderness - Back Back exam: Reports: Normal inspection, Full ROM. Denies: Muscle spasm, Rash noted, Tenderness - Neurological Neurological exam: Alert, Normal gait, Oriented X3 - Psychiatric Psychiatric exam: Normal affect, Normal mood - Skin Skin exam: Dry, Intact, Normal color, Warm Type of lesion: Rash (erythematous papules noted on left lower arm, recently diagnosed with shingles) Hospitalization - Hospitalization Admission Diagnosis: syncope, orthostatic hypotension, od of cardizem - Problem List/Discharge Diagnosis (1) Syncope Status: Acute Discharge Diagnosis: Syncope type: unspecified Qualified Code(s): R55 - Syncope and collapse Base Code: R55 - SYNCOPE AND COLLAPSE Comment: 11/02/18: orthostatic hypotension vs cardizem overdose -positive orthostatics in ED, improved with 1500mL NS -Head CT unremarkable -EKG unremarkable, Troponin negative x 2, d-dimer negative. No CP, SOB. -VS q8h -Urine drug neg -No further symptoms of dizziness/near syncope since [employer] -Patient to follow-up with PCP in 2 weeks for further evaluation -Likely due to cardizem overdose, patient encouraged to get pill box dispenser to allow better medication management (2) UTI (urinary tract infection) Status: Acute Discharge Diagnosis: Urinary tract infection type: acute cystitis Hematuria presence: without hematuria Qualified Code(s): N30.00 - Acute cystitis without hematuria Base Code: N39.0 - URINARY TRACT INFECTION, SITE NOT SPECIFIED Comment: 11/02/18 : UA indicates small leuks, 10-15 WBC, 4+ bacteria -Cipro 500mg BID x 5 days -Afebrile -WBC WNL -Encourage PO fluid intake (3) DVT prophylaxis Status: Acute Base Code: [id number] - Comment: 11/02/18: not indicated at this time due to chronic xarelto use (4) DNR (do not resuscitate) Status: Acute Base Code: Z66 - DO NOT RESUSCITATE Comment: 11/02/18: patiet remained DNR - Hospitalization Course Disposition: Home, Self-Care Hospital Course: 73 year old male patient presents to the ED for evaluation of dizziness. Patient states he climbed a flight of stairs and when he got to the top had severe dizziness. States he felt light-headed and dizzy with the room spinning. Patient states he grabbed a chair and lowered himself to the ground. Patient is not sure whether he lost consciousness completely. Patient states his Cardizem dose was recently increased to 360mg. Patient states he accidentally took 2 tabs yesterday morning. Medical history includes a-fib on Xarelto, and chronic straight cath. PCP: [facility] ED Course: VS: HR 61, RR 18, BP 130/108. Patient was positive for orthostatics, improved after 1500mL Normal Saline CBC, CMP, Trop, BNP, D-dimer WNL UA: small leukocytes, 10-15 WBC, 4+ bacteria 11/02/18: Patient A&O x 3, resting comfortably in bed at this time. Patient is a poor historian. States he lives with his brother and is responsible for administering his own medications. Patient denies any abdominal pain, fever, or urinary symptoms. Patient denies any dizziness, near syncope, or light- headedness today. Denies any nausea, vomiting, or diarrhea. VS have remained WNL. Update: VS have remained WNL. No further episodes of dizziness/near syncope. Patient to dc home, encouraged to follow-up with PCP in 2 weeks. Also encouraged to use pill box dispenser to avoid taking too much of any medications in the future. Procedures: Imaging and X-Rays 11/01/18 11:46 HEAD WO CONTRAST [CT] Stat Cardiology Procedures 11/01/18 11:46 EKG NOW Abnormal Labs: Abnormal Lab Results 11/01/18 11/01/18 11/01/18 Range/Units 11:40 11:40 11:40 RBC 5.79 H (4.40-5.70) M/uL RDW 15.2 H (11.5-14.5) % MPV 11.4 H (7.4-10.4) fl Gran % 35.0 L (47-80) % Lymphocytes % 47.5 H (16-45) % Monocytes % 14.9 H (0-9) % BUN 24 H (8-23) mg/dL Random Glucose 174 H (74-109) mg/dL NT-Pro-B Natriuret Pep 167.40 H (<125) pg/mL Ur Leukocyte Esterase (NEGATIVE) 11/01/18 Range/Units 13:10 RBC (4.40-5.70) M/uL RDW (11.5-14.5) % MPV (7.4-10.4) fl Gran % (47-80) % Lymphocytes % (16-45) % Monocytes % (0-9) % BUN (8-23) mg/dL Random Glucose (74-109) mg/dL NT-Pro-B Natriuret Pep (<125) pg/mL Ur Leukocyte Esterase Small H (NEGATIVE) Condition at Discharge: (2) Stable VTE Discharge VTE Reason For No Overlap Therapy: Not Indicated Discharge Medications - Discharge Medications Prescriptions: Ciprofloxacin HCl [Cipro] 500 mg PO Q12HR #10 tablet Home Medications: Ambulatory Orders Aspirin 81 mg PO QHS tab.chew 09/04/16 [Last Taken 02/28/17] Metformin HCl [Metformin ER Gastric] 1,000 mg PO DAILY tab 09/04/16 [Last Taken 02/28/17] Prazosin HCl 1 mg PO BID cap 09/04/16 [Last Taken 02/28/17] Sennosides [Senna] 2 tab PO DAILY tab 09/04/16 [Last Taken 02/28/17] Simvastatin 10 mg PO QHS tab 09/04/16 [Last Taken 02/28/17] Tramadol HCl 100 mg PO BID tab 09/04/16 [Last Taken 02/28/17] Diltiazem HCl [Diltiazem 12Hr ER] 360 mg PO DAILY 11/01/18 [Last Taken Unknown] Gabapentin [Neurontin] 300 mg PO TID 11/01/18 [Last Taken Unknown] Rivaroxaban [Xarelto] 20 mg PO DAILY 11/01/18 [Last Taken Unknown] Ciprofloxacin HCl [Cipro] 500 mg PO Q12HR #10 tablet 11/02/18 [Last Taken Unknown] Discharge Plan - Discharge Instructions Activity at Discharge: Increase Activity as Tolerated Diet at Discharge: Regular Diet Instructions: Rivaroxaban (By mouth), Syncope (DC), Syncope (GEN) Additional Instructions: -Your next dose of antibiotics is due tonight, take them twice a day until they are finished -Follow-up with your PCP in 2 weeks -Consider getting a pill organizer to place all medications in to prevent this from happening in the future Quality Measures - Quality Measures Quality Measures: Advance Directives, Documentation of Current Medications in Medical Record, Elder Maltreatment Screen and Follow-Up Plan, Screening for High Blood Pressure and F/U Documented - Current Medications Quality Measure: Measure #130: Documentation of Current Medications Documentation of Current Medications: <Current Medications Documented/Reviewed> [[id number]] - Blood Pressure Screening Quality Measure: Screening for High Blood Pressure and Follow-Up Documented Does Patient Have Any of the Following: No Blood Pressure Classification: Normal BP Reading Systolic Measurement: 100 Diastolic Measurement: 63 Screening for High Blood Pressure: < Normal BP, F/U Not Required > [D0016] - Advance Directives Quality Measure: Measure #47: Care Plan Advance Directives Established: No Advance Directives Information Provided To Patient: Declined Advance Directives on File: No Living Will: No Power of Seed And Fertilizer Specialist: No Advance Care Planning: <Care Plan/Decision Maker Not Decided; Discussed & Documented> [[id number]] - Elder Abuse Suspicion Index Screening: Elder Abuse Suspicion Index Screening Rely on people for bathing, dressing, shopping, banking, etc: No Prevented from getting food, clothes, medication, etc: No Made to feel shamed or threatened by someone: No Forced to sign papers or use money against will: No Feel afraid, touched in ways not wanted or hurt physically: No Poor eye contact, withdrawn, malnourished, cuts or bruises: No Screening Result: Negative result EASI Reference Information: Jet CLEMENS, Brandy C, Guy D, Uriel Barnett.Development and validation of a tool to assist physicians identification of elder abuse: The Elder Abuse Suspicion Index (EASI ). Journal of Elder Abuse and Neglect, 2008; 20 (3): 276-300. - Elder Maltreatment Screen Quality Measures: Elder Maltreatment Screen and Follow-Up Plan Elder Maltreatment Screen: <Negative, No Follow-Up Plan Required> [[id number]]
== END 2018-11-02 13:50 | disposition home or self-care (01) ==
LOC: ER 11:26 → MEDSURG 19:13
PROVIDERS: ADMIT Internal Medicine; ATTEND Internal Medicine
DX: I95.1 Orthostatic hypotension (principal); N30.00 Acute cystitis without hematuria; T46.1X1A Poisoning by calcium-channel blockers, accidental (unintentional), initial encounter; I48.91 Unspecified atrial fibrillation; Z79.01 Long term (current) use of anticoagulants; Z87.448 Personal history of other diseases of urinary system
CPT/HCPCS: 85025; 80076; 82553; 80048; 81001; 80305; 84484; 85379; 83880; 70450; 93005; 93010; G0378 ×2; J3490; 96360; 96361; 99220; 99285; J7030

== ENCOUNTER 2018-11-29 18:35 | Emergency (ER) | payer MEDICARE ==
--- NOTE | 2018-11-29 18:49 | Emergency Department Record ---
History of Present Illness - General Chief Complaint: Fall Injury Stated Complaint: fall/2wks ago lt elbow paibn Time Seen by Provider: 11/29/18 18:36 Source: Patient Mode of Arrival: Ambulatory Limitations: No limitations - History of Present Illness Initial Comments: 73 yo male presents to ED for evaluation of pain to the left elbow following a fall 2 weeks ago. Patient reports normal ROM but is painful, reports aching into the left wrist. Patient denies injury to the wrist, forearm, upper arm, or shoulder on examination, and does report long standing history of arthritis to the joints. Patient denies injury to the head or neck on examination. MD Complaint: Fall Onset/Timin -: Week(s) Fall From: Standing Fall Witnessed: No Place Fall Occurred: Home Loss of Consciousness: None Prolonged Down Time?: No Symptoms Prior to Fall: None Location - Extremities: Left: Elbow Severity: Moderate Severity scale (1-10): 8 Associated Symptoms: Denies - [place] Coma Scale Eye Response: (4) Open spontaneously Motor Response: (6) Obeys commands Verbal Response: (5) Oriented Paulina Total: 15 - Related Data Allergies Allergy/AdvReac Type Severity Reaction Status Date / Time No Known Allergies Allergy none Verified 11/29/18 18:45 Travel Screening - Travel/Exposure Within Last 30 Days Have you traveled within the last 30 days?: No Review of Systems Constitutional: Denies: Chills, Fever, Malaise, Night sweats Eyes: Denies: Eye discharge, Eye pain ENT: Denies: Congestion, Ear pain, Epistaxis Respiratory: Denies: Cough, Dyspnea Cardiovascular: Denies: Chest pain, Dyspnea on exertion Endocrine: Denies: Fatigue, Heat or cold intolerance Gastrointestinal: Denies: Abdominal pain, Nausea, Vomiting Genitourinary: Denies: Incontinence, Retention Musculoskeletal: Reports: Arthralgia. Denies: Back pain, Gout, Joint swelling Skin: Denies: Bruising, Change in color Neurological: Denies: Abnormal gait, Confusion, Headache, Seizure Psychiatric: Denies: Anxiety Hematological/Lymphatic: Denies: Anemia, Blood Clots Past Medical History - SOCIAL HISTORY Smoking Status: Never smoker Alcohol Use: None Drug Use: None - RESPIRATORY Hx Respiratory Disorders: No - CARDIOVASCULAR Hx Cardio Disorders: Yes Comment:: "trouble with heart" in the past - NEURO Hx Neuro Disorders: Yes Hx Dizziness: Yes - GI Hx GI Disorders: No - Hx Genitourinary Disorders: Yes Hx Bladder Problem: Yes Comment:: Pt self catheterizes for each void - ENDOCRINE Hx Endocrine Disorders: Yes Hx Diabetes: Yes Hx Thyroid Disease: No - MUSCULOSKELETAL Hx Musculoskeletal Disorders: No - PSYCH Hx Psych Problems: Yes Comment:: Pt states drug abuse began in [place] when he was serving - HEMATOLOGY/ONCOLOGY Hx Hematology/Oncology Disorders: No Family Medical History Any Significant Family History?: No Physical Exam - General General Appearance: Alert, Oriented x3, Cooperative, Mild distress Limitations: No limitations - Head Head exam: Atraumatic, Normocephalic, Normal inspection Head exam detail: negative: Abrasion, Contusion, Sy's sign, General tenderness, Hematoma, Laceration - Eye Eye exam: Normal appearance. negative: Conjunctival injection, Periorbital swelling, Periorbital tenderness, Scleral icterus - ENT Ear exam: negative: Auricular hematoma, Auricular trauma Nasal Exam: negative: Active bleeding, Discharge, Dried blood, Foreign body Mouth exam: negative: Drooling, Laceration, Muffled voice, Tongue elevation - Neck Neck exam: Normal inspection. negative: Meningismus, Tenderness - Respiratory Respiratory exam: Normal lung sounds bilaterally. negative: Rales, Respiratory distress, Rhonchi, Stridor - Cardiovascular Cardiovascular Exam: Regular rate, Normal rhythm, Normal heart sounds Peripheral Pulses: 3+: Radial (L) - GI/Abdominal GI/Abdominal exam: Soft. 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 ). negative: Calf tenderness, Pedal edema - Back Back exam: Denies: CVA tenderness (R), CVA tenderness (L) - Neurological Neurological exam: Alert, Normal gait, Oriented X3 - Psychiatric Psychiatric exam: Normal affect, Normal mood - Skin Skin exam: Normal color. negative: Abrasion Type of lesion: negative: abrasion Course Vital Signs 11/29/18 18:42 Temperature 97.7 F Pulse Rate 80 Respiratory 20 Rate Blood Pressure 153/81 Pulse Ox 98 - Reevaluation(s) Reevaluation #1: 11/29/18 19:48 Left elbow: No definite acute fracture of the elbow ? non-displaced fracture of the proximal ulna at the coronoid process Patient was updated on all results, will place in splint with instructions to follow-up with Dr Prieto later this week. Patient reports that he is not taking anything for his pain symptoms at home, instructed to take Motrin 800 mg as directed for his pain symptoms. Disposition Disposition: Discharge Clinical Impression: Elbow fracture, left Qualifiers: Encounter type: initial encounter Fracture type: closed Qualified Code(s): S42.402A - Unspecified fracture of lower end of left humerus, initial encounter for closed fracture Disposition: Home, Self-Care Condition: (2) Stable Instructions: Contusion in Adults (ED) Additional Instructions: Return to ED if your symptoms worsen or if you have any concerns. Follow-up with your family doctor in 3-5 days as directed. Referrals: FELIPE PRIETO [DOCTOR OF OSTEOPATH] - [facility] [Provider Group] Forms: Patient Portal Access Time of Disposition: 19:51 Quality - Quality Measures Quality Measures: N/A - Blood Pressure Screening Does Patient Have Any of the Following: Active Dx of HTN Blood Pressure Classification: Pre-Hypertensive BP Reading Systolic Measurement: 153 Diastolic Measurement: 81 Screening for High Blood Pressure: Patient Exclusion, Hx of HTN [[id number]]
--- NOTE | 2018-12-01 09:24 | RADIOLOGY REPORT ---
EXAM: LEFT ELBOW COMPLETE HISTORY: WORSENING ELBOW PAIN TWO WEEKS POST FALL. TECHNIQUE: AP, oblique, lateral and olecranon views of the left elbow are obtained. Comparison: None. Encounter: Initial. FINDINGS: There is normal bone mineralization. No definite acute fracture, dislocation, nor destructive bone lesion is seen, however, on the lateral view there is a subtle linear lucency near the mid aspect of the coronoid process on the lateral view. While this likely relates to superimposition of structures, a nondisplaced fracture cannot be entirely excluded. No anterior nor posterior fat pad sign is seen. There are mild osteoarthritic changes most pronounced in the medial compartment. Mild dorsal soft tissue swelling is present. There is a chronic appearing ossific density noted adjacent to the lateral epicondyle. IMPRESSION: 1. NO DEFINITE FRACTURE NOR DISLOCATION IS SEEN. THERE IS, HOWEVER, SUBTLE LINEAR LUCENCY AT THE MID ASPECT OF THE CORONOID PROCESS SEEN ON THE LATERAL VIEW ONLY LIKELY RELATING TO SUPERIMPOSITION OF STRUCTURES THOUGH NONDISPLACED FRACTURE CANNOT BE ENTIRELY EXCLUDED. 2. MILD DEGENERATIVE CHANGES. 3. NO DEFINITE JOINT EFFUSION. DORSAL SOFT TISSUE SWELLING. JOB NUMBER: [id number] [facility]
== END 2018-11-29 20:22 | disposition home or self-care (01) ==
LOC: ER 18:35
DX: S42.402A Unspecified fracture of lower end of left humerus, initial encounter for closed fracture (principal); E11.9 Type 2 diabetes mellitus without complications; I10 Essential (primary) hypertension; W18.30XA Fall on same level, unspecified, initial encounter; Y92.000 Kitchen of unspecified non-institutional (private) residence as the place of occurrence of the external cause
CPT/HCPCS: 99283; 99284